=== PATIENT | male | born 1980 | race Caucasian/White ===

== ENCOUNTER 2018-09-24 07:18 | Emergency (ER) | payer OTHER ==
[~2018-09-24] VITALS: Ht 170.2 cm; Wt 77.1 kg
[2018-09-24] MEDS ORDERED: Amoxicillin500 MG PO (08:21)
[2018-09-24] MEDS ORDERED: IBUP600 PO (08:21)
[2018-09-24] MEDS ORDERED: Pseudoephedrine30 MG PO (08:21)
== END 2018-09-24 08:30 | disposition home or self-care (01) ==
LOC: ER 07:18
DX: H66.92 Otitis media, unspecified, left ear (principal); H72.92 Unspecified perforation of tympanic membrane, left ear
CPT/HCPCS: 99283

== ENCOUNTER 2018-10-03 07:59 | Emergency (ER) | payer OTHER ==
[~2018-10-03] VITALS: Ht 172.7 cm; Wt 77.1 kg
[~2018-10-03 07:59] MED LIST: Amoxicillin500 MG PO; IBUP600 PO; Pseudoephedrine30 MG PO
[2018-10-03] MEDS ORDERED: SERT100 PO (08:14)
== END 2018-10-03 09:05 | disposition home or self-care (01) ==
LOC: ER 07:59
DX: H72.92 Unspecified perforation of tympanic membrane, left ear (principal); H91.92 Unspecified hearing loss, left ear; Z79.899 Other long term (current) drug therapy
CPT/HCPCS: 99283